=== PATIENT | male | born 1975 | race American Indian/Alaskan Native ===

== ENCOUNTER 2018-09-27 07:24 | Outpatient (CLI) | payer SELFPAY | END 2018-09-27 07:25 | disposition home or self-care (01) | LOC: C.LAB 07:24 | DX: B18.1 Chronic viral hepatitis B without delta-agent (principal) ==

== ENCOUNTER 2018-12-20 07:19 | Outpatient (CLI) | payer SELFPAY | END 2018-12-20 07:20 | disposition home or self-care (01) | LOC: C.LAB 07:19 | DX: B18.1 Chronic viral hepatitis B without delta-agent (principal) ==

== ENCOUNTER 2018-12-22 07:09 | Outpatient (CLI) | payer SELFPAY | END 2018-12-22 07:10 | disposition home or self-care (01) | LOC: C.LAB 07:09 ==

== ENCOUNTER 2018-12-28 07:39 | Outpatient (CLI) | payer SELFPAY | END 2018-12-28 07:40 | disposition home or self-care (01) | LOC: C.CTH 07:39 ==